=== PATIENT | male | born 1965 | race African-American/Black ===

== ENCOUNTER 2020-03-31 10:51 | Emergency (ER) | payer OTHER ==
--- NOTE | 2020-03-31 11:31 | RAD ---
EXAM: 3 views of the left shoulder HISTORY: Shoulder pain COMPARISON: None FINDINGS: There is no evidence of acute fracture or dislocation. No degenerative changes are present. No soft tissue swelling is seen. A calcified granuloma is seen in the left upper lobe of the lungs. There are calcified left hilar lymph nodes. IMPRESSION: No evidence of acute osseous abnormality.
== END 2020-03-31 11:59 | disposition home or self-care (01) ==
LOC: ERS 10:51
DX: S46.002A Unspecified injury of muscle(s) and tendon(s) of the rotator cuff of left shoulder, initial encounter (principal); K21.9 Gastro-esophageal reflux disease without esophagitis; E78.5 Hyperlipidemia, unspecified; E78.00 Pure hypercholesterolemia, unspecified; I10 Essential (primary) hypertension; F17.220 Nicotine dependence, chewing tobacco, uncomplicated; F41.9 Anxiety disorder, unspecified

== ENCOUNTER 2022-10-08 11:17 | Outpatient (CLI) | payer OTHER | END 2022-10-08 11:18 | disposition home or self-care (01) | LOC: RAD 11:17 | PROVIDERS: ATTEND Family Medicine | DX: M25.561 Pain in right knee (principal) ==

== ENCOUNTER 2022-12-10 14:45 | Emergency (ER) | payer SELFPAY ==
[2022-12-10 15:27] LABS: #Eosinphils 0.1 thou/uL (0.0-0.7); #Neutrophils 3.3 thou/uL (1.40-6.50); %Basophils 0.6 % (0.0-1.0); %Eosinophils 1.4 % (0.0-10.0); %Lymphocytes 37.7 % (21.0-51.0); %Monocytes 13.8 % (0.0-10.0); %Neutrophils 46.2 % (42.0-75.0); Mean Corpuscular HGB CONC 34.2 g/dL (32.0-36.0); Mean Platelet Volume 10.7 fL (7.4-10.4); Platelet Count 204 10x3/uL (130-400); RBC Distribution Width 14.9 % (11.5-14.5); Red Blood Cell (RBC) Count 6.16 mill/uL (4.70-6.10)
[2022-12-10 16:03] LABS: ALT (SGPT) 25 U/L (8-55); AST (SGOT) 20 U/L (5-34); Albumin 4.6 g/dL (3.5-5.0); Alkaline Phosphatase 82 U/L (40-110); Anion Gap 13 mmol/L (10-20); BUN (Urea Nitrogen) 14 mg/dL (8.4-25.7); Bilirubin, Total 0.3 mg/dL (0.2-1.2); Calc. Creatinine Clearance 0 mL/min (70-130); Calcium 10.5 mg/dL (7.8-10.44); Carbon Dioxide 25 mmol/L (22-29); Chloride 106 mmol/L (98-107); Estimated GFR 74; Globulin 3.7 g/dL (2.4-3.5); Glucose 82 mg/dL (70-105); Potassium 3.9 mmol/L (3.5-5.1); Protein, Total 8.3 g/dL (6.0-8.3); Sodium 140 mmol/L (136-145)
== END 2022-12-10 16:54 | disposition home or self-care (01) ==
LOC: ERS 14:45
DX: R55 Syncope and collapse (principal); E78.5 Hyperlipidemia, unspecified; I10 Essential (primary) hypertension; K21.9 Gastro-esophageal reflux disease without esophagitis; F17.220 Nicotine dependence, chewing tobacco, uncomplicated; Z79.899 Other long term (current) drug therapy
CPT/HCPCS: 36416; 71045; 80053; 84484; 85025; 93005